=== PATIENT | female | born 1945 | race Caucasian/White ===

== ENCOUNTER 2019-11-24 12:01 | Inpatient (IN) | payer OTHER ==
[~2019-11-24] VITALS: Ht 172.7 cm; Wt 74.2 kg
[2019-11-24 12:06] VITALS: BP 178/101
[2019-11-24] MEDS ORDERED: FOSAMAX 70 MG T70 MG PO (13:30)
[2019-11-24] MEDS ORDERED: CALCIUM500 MG PO (13:31)
[2019-11-24] MEDS ORDERED: COZAAR 25 MG TA25 M1 PO (13:31)
[2019-11-24] MEDS ORDERED: EUTHYROX100 MCG PO (13:31)
[2019-11-24] MEDS ORDERED: FISH OIL 1,001000 M3 PO (13:31)
[2019-11-24] MEDS ORDERED: TOPROL XL25 MG PO (13:32)
[2019-11-24] MEDS ORDERED: SUPER THERAVIT1 EACH PO (13:32)
[2019-11-24] MEDS ORDERED: OMEPRAZOLE40 MG PO (13:32)
[2019-11-24] MEDS ORDERED: XARELTO20 MG PO (13:33)
[2019-11-24] MEDS ORDERED: PROPAFENONE 15150 MG PO (13:33)
[2019-11-24 14:31] LABS: ABSOLUTE NEUTROPHILS 4.2 thou/uL (1.4-8.2); HEMATOCRIT 37.5 % (37.0-47.0); HEMOGLOBIN 12.6 gm/dL (12.0-15.0); LYMPHOCYTES 31.4 % (24.0-44.0); MCH 30.3 pg (26.0-34.0); MCHC 33.6 g/dL (28.0-37.0); MCV 90.2 fL (80.0-100.0); MONOCYTES 8.1 % (1.0-8.0); PLATELET COUNT 273 thou/uL (150-400); POLYS 59.5 % (36.0-66.0); RBC 4.15 mil/uL (4.20-5.00); RDW 13.6 % (10.5-14.5)
[2019-11-24 14:43] LABS: ANION GAP 10 mmol/L (7-16); BUN 13 mg/dL (7-18); CALCIUM 9.1 mg/dL (8.5-10.1); CHLORIDE 102 mmol/L (98-107); CO2 27 mmol/L (21-32); CREATININE 0.9 mg/dL (0.6-1.0); GLUCOSE 103 mg/dL (74-106); POTASSIUM 4.4 mmol/L (3.5-5.1); SODIUM 139 mmol/L (136-145)
--- NOTE | 2019-11-24 14:47 | EKG ---
[facility] [place] [address] ELECTROCARDIOGRAM REPORT Name: FRACNISCA TREADWELL Room #: PRE [facility]..#: [id number] Admission: Attend Phys: Discharge: Date of : 45 Report #: [id number] THIS REPORT FOR: cc: Peter Hawkins MD [facility] THIS REPORT FOR: //name// [facility] ED Test Date: 2019-11-24 Test Time: 13:40:34 Pat Name: FRANCISCA TREADWELL Department: Room: Gender: F Manager Endoscopy: NO : 1945 Requested By: Red Valdez Order Number: [id number] MD: Peter Hawkins Measurements Intervals Dairy Rate: 66 P: 68 NM: 188 QRS: 4 QRSD: 105 T: QT: 435 QTc: 456 Interpretive Statements Sinus rhythm Nonspecific T wave abnormality No previous ECG available for comparison Electronically Signed On 11-24-2019 14:47:10 CDT by Peter Hawkins [email or web address] <ELECTRONICALLY SIGNED> By: Peter Hawkins MD, [facility] 11/24/19 1447 1340 1340 Peter Hawkins MD, FAC /EPI
[2019-11-24 14:52] LABS: TROPONIN-I <0.06 ng/mL (<0.06)
[2019-11-24 15:46] VITALS: BP 148/84
[2019-11-24 15:50] LABS: INR 1.1; PROTIME 10.8 Seconds (9.3-11.4)
--- NOTE | 2019-11-24 16:08 | 2DMMODE ---
[facility] [place] [address] 2 D/M-MODE ECHOCARDIOGRAM Name: FRANCISCA TREADWELL Room #: 170-5 ADM IN .R.#: [id number] Admission: 11/24/19 Attend Phys: Barry Melchor MD Discharge: Date of : 45 Report #: [id number] THIS REPORT FOR: cc: FAM - Family physician unknown FAM - Family physician unknown Peter Hawkins MD [facility] ~ APPROVED REPORT Study performed: 11/24/2019 14:40:02 EXAM: Comprehensive 2D, Doppler, and color-flow Echocardiogram Patient Location: Echo lab Room #: ER Status: routine BSA: 1.91 HR: 76 bpm BP: 165/88 mmHg Rhythm: NSR Other Information Study Quality: Good Indications Bradycardia. Pacemaker tomorrow. 2D Dimensions RVDd: 42.47 mm IVSd: 10.26 (7-11mm) LVOT Diam: 20.64 (18-24mm) LVDd: 48.04 mm PWd: 10.32 (7-11mm) Ascending Ao: 32.92 (22-36mm) LVDs: 34.67 (25-40mm) Aortic Root: 32.97 mm Volumes Left Atrial Volume (Systole) Single Plane 4CH: 60.85 mL Single Plane 2CH: 90.98 mL LA ESV Index: 42.00 mL/m2 Aortic Valve AoV Peak Arnaud.: 1.47 m/s AO Peak Gr.: 8.70 mmHg LVOT Max P.23 mmHg LVOT Max V: 0.90 m/s FRANCISCO Vmax: 2.04 cm2 [facility] [address] [place] [address] 2 D/M-MODE ECHOCARDIOGRAM Name: FRANCISCA TREADWELL Room #: 170-5 [facility] IN [facility]#: [id number] Admission: 11/24/19 Attend Phys: Barry Melcohr, Discharge: Date of : 45 Report #: [id number] Mitral Valve E/A Ratio: 0.8 MV Decel. Time: 517.89 ms MV E Max Arnaud.: 0.45 m/s MV A Arnaud.: 0.59 m/s MV PHT: 150.19 ms IVRT: 87.66 ms Pulmonary Valve PV Peak Arnaud.: 0.83 m/s PV Peak Gr.: 2.77 mmHg Pulmonary Vein P Vein S: 0.53 m/s P Vein A: 0.33 m/s P Vein D: 0.34 m/s P Vein A Dur.: 156.9 msec P Vein S/D Ratio: 1.56 Tricuspid Valve TR Peak Arnaud.: 3.16 m/s RAP Estimate: 5.00 mmHg TR Peak Gr.: 40.00 mmHg PA Pressure: 45.00 mmHg Left Ventricle The left ventricle is normal size. Paradoxical septal motion consistent with conduction abnormality. There is normal left ventricular wall thickness. The left ventricular systolic function is normal. LVEF is 55-60%. Mild diastolic dysfunction Right Ventricle Right ventricle is mildly dilated. The right ventricular systolic function is normal. Atria Left atrium is severely dilated. Right atrium is severely dilated. Aortic Valve Aortic valve is mildly sclerotic, trileaflet Trace aortic regurgitation. There is no aortic valvular stenosis. Mitral Valve The mitral valve is normal in structure. Moderate mitral regurgitation. Tricuspid Valve The tricuspid valve is normal in structure. Mild to moderate tricuspid regurgitation. Estimated PAP is 45mmHg. [facility] [address] [place] [address] 2 D/M-MODE ECHOCARDIOGRAM Name: FRANCISCA TREADWELL Room #: 170-5 ADM IN .R.#: [id number] Admission: 11/24/19 Attend Phys: Barry Melchor, Discharge: Date of : 45 Report #: [id number] Pulmonic Valve The pulmonary valve is normal in structure. Trace pulmonic regurgitation. Great Vessels The aortic root is normal in size. The ascending aorta is normal in size. IVC is normal in size and collapses >50% with inspiration. Pericardium There is no pericardial effusion. <Conclusion> The left ventricular systolic function is normal. LVEF is 55-60%. Mild diastolic dysfunction Right ventricle is mildly dilated. Both atria are severely dilated. Aortic valve is mildly sclerotic, trileaflet. Trace aortic regurgitation, no stenosis. The mitral valve is normal in structure. Moderate mitral regurgitation. Mild to moderate tricuspid regurgitation. Estimated pulmonary artery pressure of 45mmHg. There is no pericardial effusion. <ELECTRONICALLY SIGNED> By: Peter Hawkins MD, [facility] 11/24/19 1608 1608 1608 Peter Hawkins MD, FACC /INF
[2019-11-24 16:27] VITALS: BP 147/93
[2019-11-24 16:30] VITALS: BP 181/93
[2019-11-24 18:29] LABS: ALBUMIN 3.9 g/dL (3.4-5.0); TOTAL PROTEIN 7.3 g/dL (6.4-8.2)
[2019-11-24 18:57] LABS: TSH 1.86 uIU/mL (0.358-3.740)
[2019-11-24 20:30] VITALS: BP 114/74
--- NOTE | 2019-11-24 20:39 | NUR ---
PATIENT ARRIVED VIA W/C FROM ED, ALERT AND ORIENTED X4. BP ELEVATED ON ARRIVAL AND DR ALMENDAREZ NOTIFIED, MEDICATED PER ORDERS, ADMISION COMPLETED, AND POC INITIATED. AND WILL CONTINUE WITH POC.
[2019-11-25] VITALS (12 sets, daily range): BP systolic 117–164; BP diastolic 71–100
--- NOTE | 2019-11-25 05:08 | NUR ---
SLEPT MOST OF SHIFT. WORKING ON GOALS AND PLAN OF CARE FOR NOC. UP WITH STANDBY ASSIST. PROGRESSING TOWARDS AM SURGERY FOR PACEMAKER. CONTINUE TO ASSES CLOSELY. NPO PAST MIDNIGHT.
--- NOTE | 2019-11-25 09:56 | NUR ---
cm completed initial assessment to discuss d/c planning. pt a&ox4. pt's dtr, hortencia at bedside during assessment. pt lives alone at home. pt has 0 staris, "its all level." pt is active and drives. pt states she has a good support system. pt denies hx w/snf or hh. pt has 0 dmes. cm to cont to follow to assist as needed.
[2019-11-26 03:14] VITALS: BP 125/81
[2019-11-26] MEDS ORDERED: FAMOTIDINE 40 M40 M1 PO (03:42)
--- NOTE | 2019-11-26 03:44 | NUR ---
RESTING QUIETLY MOST OF SHIFT. PAIN MEDICATION GIVEN FOR LEFT SHOULDER PAIN. STATES ACHES SO WARM BLANKET PLACED TO SHOULDER WITH RELIEF. ASSISTED TO COMODE TO VOID NEEDED. LEFT ARM IMMOBILIZER REMAINS IN PLACE. WORKING ON GOALS AND PLAN OF CARE FOR NOC. PROGRESSING SLOWLY TOWARDS DISCHARGE GOALS FOR THIS AM. CONTINUE TO ANKUR KRAFT. TELEMETRY SHOWS APACED WITH SR, WITHOUT PAUSES.
[2019-11-26] MEDS ORDERED: COZAAR100 MG PO (08:08)
[2019-11-26] MEDS ORDERED: PROPAFENONE 22225 M1 PO (08:08)
[2019-11-26 08:50] VITALS: BP 134/82
[2019-11-26 09:47] LABS: ALBUMIN 3.7 g/dL (3.4-5.0); CALCIUM 8.9 mg/dL (8.5-10.1); CREATININE 1.1 mg/dL (0.6-1.0); TOTAL BILIRUBIN 0.6 mg/dL (0.2-1.0); TOTAL PROTEIN 7.3 g/dL (6.4-8.2)
[2019-11-26 10:23] VITALS: BP 134/82
--- NOTE | 2019-11-26 13:47 | NUR ---
ASSESSMENT CHARTED - MEDS PER JERICHO MORRIS DIET AND FLUIDS- NO CO'S OF NAUSEA. UP AD JOLIE ON THE UNIT- SEEN BY PHYS THERAPY THIS AM. INCISION TO LEFT CHEST C/D/I. HOME THIS AM. INSTRUCTION RE HOME MEDS. CARE AND FOLLOW UP GIVEN TO PATIENT AND DAUGHTER - STATED UNDERSTANDING OF INSTRUCTION GIVEN. LEFT UNIT VIA WHEELCHAIR - HOME PVT VEHICLE ACCOMPANIED BY DAUGHTER. NO CO'S AT TIME OF D/C.
--- NOTE | 2019-11-26 15:20 | NUR ---
DISCHARGE NOTE: MAINE reviewed chart and spoke with nursing and attending physician. Pt is medically stable for discharge home today. No discharge needs identified. Pt's family provided transportation home. Case closed.
--- NOTE | 2019-12-04 14:48 | P ---
[facility] [place] [address] PROCEDURE REPORT Name: FRANCISCA TREADWELL Room #: 219-P [facility] IN M.R.#: [id number] Admission: 11/24/19 Attend Phys: Barry Melchor MD Discharge: 11/26/19 Date of : 45 Report #: [id number] THIS REPORT FOR: cc: [facility] - Family physician unknown FAM - Family physician unknown El Chase MD ~ CC: [facility] unknown Barry Melchor PROCEDURE PERFORMED: Pacemaker implantation. HISTORY: The patient is a 73-year-old female with history of atrial fibrillation, who has recently started experiencing sick sinus syndrome with symptomatic bradycardia as well as episodes of sinus arrest, the longest of which was 6 seconds. She is here for dual chamber pacemaker implantation. ANESTHESIA: The patient underwent MAC anesthesia with no anesthesia related complications. DESCRIPTION OF PROCEDURE: The patient underwent informed consent where we discussed the details of the procedure including the risks, which include but not limited to bleeding, infection, vascular damage, cardiac perforation, pneumothorax. She understood these risks and is willing to proceed. The patient was brought to EP laboratory in fasting and sedated state, prepped and draped in a sterile fashion. She underwent venogram showing patency of the left axillary vein and received IV antibiotics prior to initiation of the procedure. Next, I injected lidocaine at the incision site. Incision was made, pocket was created over the prepectoral fascia and access was obtained twice to left axillary vein using the extrathoracic approach. Sheath positioned using the modified Seldinger technique. Next, leads were positioned into the right ventricle and right atrial appendage both with adequate pacing and sensing thresholds. The leads were sutured to prepectoral fascia. Device connected. Tug test performed. Pocket was irrigated with vancomycin. Pocket was closed in 2 layers using 2-0 for the deep layer, 3-0 for the mid layer and surgical glue was placed to outer skin layer. The patient awoke neurologically and hemodynamically intact. No complications and no significant bleeding. The implanted pacemaker was a [employer] [place] serial #[id number]. Atrial lead was a 5076, 52 cm, serial #[id number]. The RV lead was model #5076, 58 cm, serial #[id number]. Atrial lead demonstrates P-wave 2.1 millivolts, pacing impedance 437 ohms, pacing threshold 0.4 volts at 0.4 milliseconds. The RV lead demonstrated R-wave of 4.5 millivolts, pacing impedance of 741 ohms and the pacing threshold 0.4 volts at 0.4 milliseconds. The device was programmed to [facility] [address] [place] [address] PROCEDURE REPORT Name: FRANCISCA TREADWELL Room #: 219-P [facility] IN M.R.#: [id number] Admission: 11/24/19 Attend Phys: Barry Melchor MD Discharge: 11/26/19 Date of : 45 Report #: [id number] the DDDR 60-130 mode. CONCLUSIONS: 1. Successful dual-chamber pacemaker implantation. 2. Satisfactory atrial and ventricular pacing and sensing thresholds. <ELECTRONICALLY SIGNED> By: El Chase MD 12/04/19 1448 1326 1518 El Chase MD /nt
== END 2019-11-26 10:51 | disposition home or self-care (01) | DRG 242 ==
LOC: ER 12:01 → EROBS 15:36 → 2N 15:36
PROVIDERS: Emergency Medicine; Nurse Practitioner; ADMIT Internal Medicine; ATTEND Internal Medicine
PROC: 0JH606Z Insertion of Pacemaker, Dual Chamber into Chest Subcutaneous Tissue and Fascia, Open Approach (ICD-10-PCS; principal; 2019-11-25)
PROC: 02HK3JZ Insertion of Pacemaker Lead into Right Ventricle, Percutaneous Approach (ICD-10-PCS; principal; 2019-11-25)
PROC: 02H63JZ Insertion of Pacemaker Lead into Right Atrium, Percutaneous Approach (ICD-10-PCS; principal; 2019-11-25)
DX: I49.5 Sick sinus syndrome (principal); I50.31 Acute diastolic (congestive) heart failure; E03.9 Hypothyroidism, unspecified; M81.0 Age-related osteoporosis without current pathological fracture; I10 Essential (primary) hypertension; Z20.828 Contact with and (suspected) exposure to other viral communicable diseases; I48.0 Paroxysmal atrial fibrillation; K21.9 Gastro-esophageal reflux disease without esophagitis; Z88.8 Allergy status to other drugs, medicaments and biological substances; Z79.899 Other long term (current) drug therapy
CPT/HCPCS: 10081; 62110; 62900